=== PATIENT | male | born 1960 | race Two or more races ===

== ENCOUNTER 2020-11-14 16:58 | Emergency (ER) | payer SELFPAY ==
[~2020-11-14] VITALS: Ht 177.8 cm; Wt 117.9 kg
[2020-11-14 19:10] VITALS: BP 145/93
[2020-11-14] MEDS ORDERED: INDOMETHACIN 25 MG CAP PO ONE (22:00)
== END 2020-11-14 22:35 | disposition home or self-care (01) ==
LOC: ER 16:59
DX: M10.9 Gout, unspecified (principal); E79.0 Hyperuricemia without signs of inflammatory arthritis and tophaceous disease
CPT/HCPCS: 36415; 73630; 84550